=== PATIENT | male | born 1950 | race Caucasian/White ===

== ENCOUNTER 2018-11-01 13:07 | Inpatient (IN) | payer MEDICARE, OTHER ==
[~2018-11-01] VITALS: Ht 180.3 cm; Wt 67.1 kg
[2018-11-01 14:03] LABS: Basophils # (auto) 0.1 uL; Basophils % (auto) 0.9 % (0.0-2.0); Eosinophils # (auto) 0.5 uL; Eosinophils % (auto) 3.5 % (0.0-7.0); Hematocrit 46.4 % (41.0-53.0); Hemoglobin 15.8 g/dL (13.5-17.5); Lymphocytes # (auto) 3.7 uL; Lymphocytes % (auto) 27.9 % (10.0-50.0); Mean Corpuscular Hemoglobin 30.5 pg (28.0-32.0); Mean Corpuscular Hgb Conc. 34.2 g/dL (32.0-36.0); Mean Corpuscular Volume 89.3 fL (80.0-100.0); Monocytes # (auto) 1.2 uL; Monocytes % (auto) 9.1 % (0.0-12.0); Neutrophils # (auto) 7.8 uL; Neutrophils % (auto) 58.6 % (37.0-80.0); Nucleated Red Blood Cells % 0.1 %; Platelet Count (auto) 365 10^3/uL (140-450); Red Cell Distribution Width 13.9 % (11.8-14.3); White Blood Cell 13.4 10^3/uL (4.4-10.8)
[2018-11-01 14:13] LABS: Chloride 105 mmol/L (98-107); Potassium 4.1 mmol/L (3.5-5.1); Sodium 139 mmol/L (136-145)
[2018-11-01] MEDS ORDERED: LIDOCAINE 2% JELLY 11ml (GLYDO) UR ONE (14:15)
[2018-11-01 14:22] LABS: Alanine Aminotransferase 36 U/L (16-61); Alkaline Phosphatase 130 U/L (45-117); Anion Gap 8 (5-15); Aspartate Aminotransferase 21 U/L (15-37); BUN/Creatinine Ratio 14.1; Bilirubin, Total 0.3 mg/dL (0.2-1.0); Blood Urea Nitrogen 12 mg/dL (7-18); Calcium 8.8 mg/dL (8.5-10.1); Carbon Dioxide 26 mmol/L (21-32); GFR African American 115 mL/min; GFR Non-African American 95 mL/min; Glucose 100 mg/dL (74-106); Magnesium 2.3 mg/dL (1.6-2.6); Total Protein 7.7 g/dL (6.4-8.2)
[2018-11-01] MEDS ORDERED: SODIUM CHLORIDE 0.9% 1,000 ML IV SCH (14:56)
[2018-11-01] MEDS ORDERED: NITROGLYCERIN 0.4 MG SL TAB SL PRN (15:00)
[2018-11-01] MEDS ORDERED: TEMAZEPAM 15 MG CAP PO PRN (15:00)
[2018-11-01] MEDS ORDERED: MORPHINE SULFATE 4 MG/ML SYR/VIAL IV PRN (15:00)
[2018-11-01] MEDS ORDERED: ACETAMINOPHEN 500 MG TAB PO PRN (15:00)
[2018-11-01] MEDS ORDERED: LORazepam 0.5 MG TAB PO PRN (15:00)
--- NOTE | 2018-11-01 15:55 | NUR ---
Telemetry admit from ER Patient admitted to Telemetry unit. Patient oriented to primary RN, unit, room, bed, and unit policies regarding patient care and visiting hours. Patient now on continuous telemetry monitoring, tele box #7 and telemetry reading on arrival to unit is SR in the 90's. Patient weighed by bed scale and encouraged to call if they need something. All questions and concerns addressed, patient verbalized understanding.
[2018-11-01 15:58] LABS: Amylase 178 U/L (25-115); Lipase 1040 U/L (73-393)
[2018-11-01 16:00] LABS: Creatine Kinase IFCC 69 U/L (39-308)
[2018-11-01 17:01] LABS: Folate (Folic Acid) 11.71 ng/mL (5.38-24)
[2018-11-01] MEDS: FAMOTIDINE (10MG/ML) 2ML VL IV SCH (17:30)
[2018-11-01] MEDS: LACTULOSE 20Gm/30ML SOLN PO PRN (17:31)
--- NOTE | 2018-11-01 18:46 | NUR ---
MURRAY Patient states that murray catheter is hurting and he wants it taken out. "I feel alot of pain and pressure and still feel like I have to pee, I want it taken out". Murray dc'd with clean technique following deflation of balloon. Patient tolerated well. Will continue to monitor.
[2018-11-01] MEDS: MORPHINE SULFATE 4 MG/ML SYR/VIAL IV PRN (19:12)
--- NOTE | 2018-11-01 19:19 | NUR ---
FALL Patient found on floor by Helen LAWRENCE. Patient states he fell trying to get up from [facility]. Patient states he believes he hit his head and also has a reddened area on left hip. Notified distribution clerk hospitalist, Dr. Moore. New order left hip xray and head CT.
[2018-11-01 19:24] LABS: Urine Bacteria NONE SEEN /hpf (None Seen); Urine Blood TRACE /uL (Negative); Urine Mucus FEW (None Seen); Urine Specific Gravity 1.022 (1.001-1.035); Urine WBC <1 /hpf (0 - 3)
--- NOTE | 2018-11-01 19:30 | NUR ---
CLOSING NOTE Endorsed care of patient to [facility]. Patient resting in bed with eyes closed, even rise and fall of chest noted. No S/S of distress noted.
[2018-11-01 19:51] LABS: Alcohol, Urine < 3.0 mg/dL (0-5); Amphetamine Screen, Urine POSITIVE (NEGATIVE); Barbiturate Scree,Urine NEGATIVE (NEGATIVE); Benzodiazephine Screen, Urine POSITIVE (NEGATIVE); Cannabinoid Screen, Urine NEGATIVE (NEGATIVE); Cocaine Screen, Urine NEGATIVE (NEGATIVE); Opiate Scree,Urine NEGATIVE (NEGATIVE); Phencyclidine Screen, Urine NEGATIVE (NEGATIVE)
[2018-11-01] MEDS ORDERED: cefTRIAXone 1GM/50ML D5W 50 ML IV ONE (20:30)
--- NOTE | 2018-11-01 20:50 | NUR ---
Pt went to CT and back and received CT of head due to fall. Denies headache, no n/v, KEENAN. Back in room. Call light in reach, bed in low position, and bed alarm on. Pt cautioned not to get up without calling nurse/MITER GRINDER OPERATOR.
[2018-11-01 21:58] VITALS: BP 196/83
[2018-11-01] MEDS ORDERED: ATORVASTATIN 20 MG TAB PO SCH (22:00)
[2018-11-01] MEDS ORDERED: cloNIDine HCL 0.1 MG TAB PO ONE (22:30)
[2018-11-01] MEDS: metroNIDAZOLE 500MG/100ML 100 ML IV SCH (23:31)
[2018-11-02] MEDS: SODIUM CHLORIDE 0.9% 1,000 ML IV SCH ×3 (01:04→09:47)
--- NOTE | 2018-11-02 02:44 | NUR ---
Pt assisted to bedside commode. Has very poor spatial orientation. Tries to lean forward on commode, causing himself to nearly fall. Requesting urinary catheter to be reinserted. Incontinent of large amount of urine.
[2018-11-02] MEDS: FAMOTIDINE (10MG/ML) 2ML VL IV SCH ×2 (04:16→15:48)
[2018-11-02 05:00] VITALS: BP 161/106
[2018-11-02 05:26] LABS: Basophils # (auto) 0.1 uL; Basophils % (auto) 0.8 % (0.0-2.0); Eosinophils # (auto) 0.4 uL; Eosinophils % (auto) 3.5 % (0.0-7.0); Hematocrit 42.8 % (41.0-53.0); Hemoglobin 14.4 g/dL (13.5-17.5); Lymphocytes # (auto) 3.2 uL; Mean Corpuscular Hgb Conc. 33.6 g/dL (32.0-36.0); Mean Corpuscular Volume 89.2 fL (80.0-100.0); Monocytes # (auto) 0.9 uL; Monocytes % (auto) 7.6 % (0.0-12.0); Neutrophils # (auto) 6.8 uL; Neutrophils % (auto) 60.1 % (37.0-80.0); Nucleated Red Blood Cells % 0.1 %; Platelet Count (auto) 326 10^3/uL (140-450); Red Blood Cells 4.79 10^6/uL (4.5-5.90); Red Cell Distribution Width 13.6 % (11.8-14.3); White Blood Cell 11.3 10^3/uL (4.4-10.8)
[2018-11-02] MEDS: metroNIDAZOLE 500MG/100ML 100 ML IV SCH (05:28)
[2018-11-02] MEDS: cloNIDine HCL 0.1 MG TAB PO PRN ×2 (05:38→16:09)
[2018-11-02 05:44] LABS: Amylase 74 U/L (25-115); Lipase 168 U/L (73-393)
--- NOTE | 2018-11-02 06:15 | NUR ---
Asked three times to get up to BR. Assisted to bedside commode. Insists on walking to BR but informed pt that is is not safe as his spatial orientation and balance is very poor. Pt has poor safety awareness. Requested that murray be put back in if he can receive a smaller one. 14 Fr. easily placed without trauma. Pt give Klonopin 0.1 mg po for hypertension per order. Pt is asymptomatic with hypertension. Will f/u on effectiveness of prn.
--- NOTE | 2018-11-02 07:32 | NUR ---
PAGED Paged operations clerk hospitalist regarding hypertension. Patient's current BP 164/100 HR 95. Clonidine 0.1mg given @ 0538. Awaiting call back.
--- NOTE | 2018-11-02 07:38 | NUR ---
OPENING NOTE Assumed care of patient from NOC RN, Magalie. Patient awake and alert with no S/S of distress/SOB or pain. Soliman catheter intact/patent and hung below bed. Instructed on POC and to call for assist PRN, verbalized understanding. Patient's BP is elevated, 164/100, appears asymptomatic. Paged MD for additional prn medication, awaiting call back. Bed in lowest, locked position with side rails up x2. Fall precautions in place and call light within reach. Assisted patient with getting in touch with spouse. Will continue to monitor for changes Q1hr and PRN.
[2018-11-02] MEDS: LACTULOSE 20Gm/30ML SOLN PO PRN (08:36)
[2018-11-02] MEDS ORDERED: cefTRIAXone 1GM/50ML D5W 50 ML IV SCH (09:00)
--- NOTE | 2018-11-02 09:28 | NUR ---
LM FOR FAMILY Left messaged for patient's spouse per patient's request to call.
[2018-11-02] MEDS: MORPHINE SULFATE 4 MG/ML SYR/VIAL IV PRN (09:47)
[2018-11-02] MEDS ORDERED: ASPirin 81 mg TAB PO SCH (10:00)
[2018-11-02] MEDS ORDERED: ENOXAPARIN SOD 40 MG/0.4 ML SYRINGE SC SCH (10:00)
[2018-11-02] MEDS ORDERED: POLYETHYLENE GLYCOL 17 GM PWDR PO ONE (11:15)
--- NOTE | 2018-11-02 11:40 | NUR ---
FALL While walking past patient's room, a loud noise was heard. Upon entering room, the patient was found on his knees in front of the BSC. Per patient's spouse, PT helped assist patient onto BSC. Patient then proceeded to get off the commode with the help of his spouse but she unable to help hold patient up and he fell forward onto his knees. Patient denies any injury at this time. Both patient and spouse have been told that patient is not suitable for the BSC and needs to use a bedpan. The commode has been removed from room. coiled tubing supervisor, Yecenia, and MD, Dr. Lisa Worrell, are aware of fall. Fall precautions continue to be in place and call light is within reach. Will continue to monitor patient Q1hr/PRN.
[2018-11-02 12:44] LABS: Cholesterol 248 mg/dL (< 200); Triglycerides 371 mg/dL (< 150)
[2018-11-02 12:45] LABS: HDL Cholesterol 25 mg/dL (40-59); LDL Cholesterol 151 mg/dL (< 100)
[2018-11-02] MEDS ORDERED: IOHEXOL 350 MG/ML 100ML IJ ONE (14:34)
[2018-11-02] MEDS ORDERED: ATORVASTATIN 20 MG TAB PO ONE (15:00)
[2018-11-02] MEDS: DOCUSATE SOD 100 MG CAP PO SCH ×2 (15:47→22:33)
[2018-11-02] MEDS: METOPROLOL TARTRATE 25 MG TAB PO SCH ×2 (16:05→22:32)
[2018-11-02] MEDS: HYDROcodone-ACET 5/325MG TAB PO PRN (16:10)
--- NOTE | 2018-11-02 16:30 | NUR ---
AMA Patient taken off unit by spouse via wheelchair to go down and smoke. AMA form signed. No S/S of distress noted.
--- NOTE | 2018-11-02 16:48 | NUR ---
RETURN TO UNIT Patient returned to unit via wheelchair. No S/S of distress noted.
[2018-11-02 17:00] VITALS: BP 184/123
--- NOTE | 2018-11-02 17:07 | NUR ---
assessment Per consult transfer to SNF today. MD order has been sent to shayna case management rn by Divya case management rn. MD order has been sent to GONZÁLEZ, Latrell Irby, and SHAAN. Waiting on reply back now. Addendum: 11/02/18 at 1709 by Noni Mercedes Amended: Links added.
--- NOTE | 2018-11-02 19:15 | NUR ---
CLOSING NOTE Endorsed care of patient to [facility]. Patient resting in bed with eyes closed, even rise and fall of chest noted. No S/S of distress noted.
[2018-11-02] MEDS: PROMETHAZINE HCL 25 MG/ML 1ML IV PRN (20:02)
[2018-11-02 21:39] VITALS: BP 109/72
[2018-11-02] MEDS ORDERED: ATORVASTATIN 20 MG TAB PO SCH (22:00)
[2018-11-03] MEDS: FAMOTIDINE (10MG/ML) 2ML VL IV SCH ×2 (03:24→15:28)
[2018-11-03 05:00] VITALS: BP 145/75
[2018-11-03] MEDS: DOCUSATE SOD 100 MG CAP PO SCH ×3 (06:16→21:43)
[2018-11-03] MEDS: LACTULOSE 20Gm/30ML SOLN PO PRN ×2 (06:17→22:02)
--- NOTE | 2018-11-03 07:15 | NUR ---
Report given to ENID Faulkner. Pt is oriented and on Day # 3 of ETOH withdrawal. Aware of s/s of DT's. Has fine tremors in both hands. States he feels "groggy" this am but couldn't sleep until 0230 AM. Bedrails up, call light in reach. Addendum: 11/03/18 at 0801 by NICOLAS EUCEDA RN Disregard above not, wrong patient.
--- NOTE | 2018-11-03 07:15 | NUR ---
Pt has had one small stool tonight. Abdomen soft with active bowel sounds. Received Lactulose and Colace this am and last noc. Refused enema, and then changes his mind. Able to sit on bedpan. Has been bradycardic tonight, but blood pressure WNL. Continuously removes cardiac leads. Bed alarm on, and bed rails up and pt reminded not to get up without assistance. Focuses on not being here and inappropriately wants to file a police report, when said she was going home and will be back in am. Report given to ENID Jackson
[2018-11-03 08:00] VITALS: BP 183/96
--- NOTE | 2018-11-03 08:00 | NUR ---
Opening Shift Note Assumed care of the patient from the mine shifter RN. The patient is A&Ox3, no signs or symptoms of distress. The patient has episodes of forgetfulness. Will reorient as needed. The patient's bed alarm is on. Educated the patient on POC and patient verbalized understanding. The patient's call light is within reach and bed is in the lowest, locked position. Will round hourly and continue to monitor.
[2018-11-03] MEDS: cloNIDine HCL 0.1 MG TAB PO PRN ×2 (08:50→21:42)
[2018-11-03 09:00] VITALS: BP 183/96
[2018-11-03] MEDS: ASPirin 81 mg TAB PO SCH (09:58)
[2018-11-03] MEDS: METOPROLOL TARTRATE 25 MG TAB PO SCH ×2 (09:59→21:49)
--- NOTE | 2018-11-03 10:05 | NUR ---
INSURANCE: CALLED ADMITTING TO VERIFY PATIENT INSURANCE, PER COMMUNICATION ORDER FROM DR. GIFFORD OF 11/02/18 PATIENT IS NO LONGER A CHOICE HMO PATIENT. PER ADMITTING DEPARTMENT, PATIENT IS STILL CHOICE. CALLED JUNIOR PROGRAMMER PROJECT DEVELOPMENT LEADER TO OBTAIN PHONE NUMBER FOR CHOICE PROJECT DEVELOPMENT LEADER TO FURTHER INVESTIGATE, AWAITING CALL BACK AT THIS TIME.
[2018-11-03] MEDS ORDERED: POLYETHYLENE GLYCOL 17 GM PWDR PO PRN (11:15)
[2018-11-03] MEDS ORDERED: IPRATROPIUM BROM 0.5 MG/2.5ML INH SOL NEB PRN (12:00)
[2018-11-03] MEDS ORDERED: ALBUTEROL SULF 2.5 MG/0.5ML(0.5%) NEB SOLN NEB PRN (12:00)
[2018-11-03] MEDS ORDERED: TAMSULOSIN HYDROCHLORIDE 0.4 MG CAP PO ONE (12:00)
[2018-11-03 13:00] VITALS: BP 144/89
[2018-11-03] MEDS: HYDROcodone-ACET 5/325MG TAB PO PRN (15:28)
[2018-11-03 17:13] VITALS: BP 148/87
[2018-11-03] MEDS ORDERED: ALPRAZolam 0.25 MG TAB PO PRN (17:15)
[2018-11-03] MEDS: TAMSULOSIN HYDROCHLORIDE 0.4 MG CAP PO SCH (18:32)
--- NOTE | 2018-11-03 20:11 | NUR ---
RECEIVED PT FROM DAY RN POC REVIEWED
--- NOTE | 2018-11-03 21:30 | NUR ---
pt angry and confused, xanax given as ordered, call light within reach bed alarm intact
[2018-11-03] MEDS: ALPRAZolam 0.25 MG TAB PO SCH (21:34)
[2018-11-03] MEDS: AMITRIPTYLINE HCL 25 MG TAB PO SCH (21:46)
[2018-11-03] MEDS: ATORVASTATIN 20 MG TAB PO SCH (21:49)
[2018-11-03 22:00] VITALS: BP 160/89
[2018-11-03] MEDS ORDERED: ATORVASTATIN 20 MG TAB PO SCH (22:00)
[2018-11-04] VITALS (7 sets, daily range): BP systolic 147–167; BP diastolic 70–116
--- NOTE | 2018-11-04 03:31 | NUR ---
pt awoke bed alarm went off pt sitting on side of bed, reeducated pt on nurse call light and purpose of bedpan, all questions an d concerns addressed
[2018-11-04] MEDS: FAMOTIDINE (10MG/ML) 2ML VL IV SCH ×2 (03:39→19:21)
[2018-11-04] MEDS: cloNIDine HCL 0.1 MG TAB PO PRN (03:47)
[2018-11-04] MEDS: DOCUSATE SOD 100 MG CAP PO SCH ×2 (06:13→21:39)
--- NOTE | 2018-11-04 07:00 | NUR ---
Opening Shift Note Assumed care of the patient from the maintenance technician 3rd shift RN. The patient is A&Ox4, no signs or symptoms of distress. Educated the patient on POC and patient verbalized understanding. The patient's call light is within reach and bed is in the lowest, locked position. Will round hourly and continue to monitor.
[2018-11-04] MEDS: ASPirin 81 mg TAB PO SCH (09:50)
[2018-11-04] MEDS: METOPROLOL TARTRATE 25 MG TAB PO SCH (09:50)
[2018-11-04] MEDS: NICOTINE 21MG/24 HR TOPICAL PATCH TD SCH (09:51)
[2018-11-04] MEDS: ALPRAZolam 0.25 MG TAB PO SCH ×2 (09:51→21:39)
--- NOTE | 2018-11-04 10:20 | NUR ---
Patient changed. Patient had bowel movement Addendum: 11/04/18 at 1049 by DOT BOWERS RN wrong patient
--- NOTE | 2018-11-04 10:40 | NUR ---
Wound care at bedside Addendum: 11/04/18 at 1048 by DOT BOWERS RN wrong patient
[2018-11-04] MEDS: HYDROcodone-ACET 5/325MG TAB PO PRN ×2 (14:03→20:46)
[2018-11-04] MEDS: TAMSULOSIN HYDROCHLORIDE 0.4 MG CAP PO SCH (19:22)
--- NOTE | 2018-11-04 19:30 | NUR ---
RECEIVED PT FROM DAY RN POC REVIEWED
[2018-11-04] MEDS: hydrALAZINE HCL 20 MG/ML VL IV PRN (20:55)
--- NOTE | 2018-11-04 21:35 | NUR ---
PT ATTEMPTING TO GET OOB, BED ALARM INTACT CALL LIGHT WITHIN REACH, REEDUCATED PT ON POC , XANAX GIVEN ORDERED
[2018-11-04] MEDS: AMITRIPTYLINE HCL 25 MG TAB PO SCH (21:39)
[2018-11-04] MEDS: ATORVASTATIN 20 MG TAB PO SCH (22:00)
--- NOTE | 2018-11-04 22:19 | NUR ---
Respiratory note: PRN MED NEB TX NOT INDICATED AT THIS TIME. HR 101, RR 16, SPO2 99% ON RA, BS CLEAR. PT INFORMED TO HIT CALL BUTTON IF FEELING SOB OR WHEEZING.
--- NOTE | 2018-11-05 00:56 | NUR ---
PT RESTING WITH EYES CLOSED RESP EVEN AND UNLABORED, BED ALARM INTACT, CALL LIGHT WITHIN REACH
[2018-11-05] MEDS: HYDROcodone-ACET 5/325MG TAB PO PRN ×3 (02:31→20:00)
--- NOTE | 2018-11-05 03:33 | NUR ---
PT AWOKE RESTLESS THREATENING TO JUMP OOB, BED ALARM INTACT, CALL LIGHT WITHIN REACH, PT HAS PERIODS OF INCREASED ANXIETY
[2018-11-05] MEDS: FAMOTIDINE (10MG/ML) 2ML VL IV SCH ×2 (03:41→14:29)
[2018-11-05] MEDS: LACTULOSE 20Gm/30ML SOLN PO PRN (03:47)
[2018-11-05 05:00] VITALS: BP 189/105
[2018-11-05] MEDS: hydrALAZINE HCL 20 MG/ML VL IV PRN ×2 (05:30→23:36)
[2018-11-05 05:36] LABS: Basophils # (auto) 0.1 uL; Eosinophils # (auto) 0.3 uL; Eosinophils % (auto) 3.6 % (0.0-7.0); Hematocrit 44.3 % (41.0-53.0); Hemoglobin 15.1 g/dL (13.5-17.5); Lymphocytes # (auto) 2.4 uL; Mean Corpuscular Volume 88.4 fL (80.0-100.0); Monocytes # (auto) 0.6 uL; Monocytes % (auto) 7.4 % (0.0-12.0); Neutrophils # (auto) 5.2 uL; Nucleated Red Blood Cells % 0.1 %; Platelet Count (auto) 352 10^3/uL (140-450); Red Blood Cells 5.02 10^6/uL (4.5-5.90); Red Cell Distribution Width 13.6 % (11.8-14.3); White Blood Cell 8.7 10^3/uL (4.4-10.8)
[2018-11-05] MEDS: PROMETHAZINE HCL 25 MG/ML 1ML IV PRN (06:11)
[2018-11-05 06:14] LABS: Potassium 3.3 mmol/L (3.5-5.1)
--- NOTE | 2018-11-05 06:45 | NUR ---
HOSPITALIST PAGED FOR INCREASE IN PTS PAIN MED, PT C/O BACK PAIN
--- NOTE | 2018-11-05 06:46 | NUR ---
BED ALARM ON PT CONTINUE TO TRY TO GET OOB BED ALARM HOME CARE PHYSICAL THERAPIST LIGHT WITHIN REACH, PT NEEDS A SITTER CHARGE NURSE AWARE, NO SITTER AVAILABLE AT THIS TIME
--- NOTE | 2018-11-05 06:49 | NUR ---
PT CONTINUE TO REMOVE TELE MONITOR AND STAY NAKED IN BED REEDUCATED PT ON POC AND PURPOSE OF HEART MONITOR
--- NOTE | 2018-11-05 07:32 | NUR ---
PT PULLED OUT GIL CATHETER
--- NOTE | 2018-11-05 07:40 | NUR ---
OPENING SHIFT PATIENT IS AWAKE, ALERT, AND ORIENTED X4. PATIENT C/O OF ANXIETY AND BACK PAIN 06/13. WILL MEDICATE PER EMAR/ M.D. ORDERS. NO S/S OF DISTRESS OR SOB. PATIENT HAS NO GIL CATHETER AT THIS TIME AND IS REQUESTING A NEW ONE. IT WAS REPORTED PATIENT PULLED HIS LAST ONE OUT AND THERE WAS BLEEDING NOTED. PATIENT HAS BPH. EXPLAINED TO PATIENT I MUST GET AN M.D. CLEARANCE BEFORE INSERTING ANOTHER CATHETER DUE TO POSSIBILITY OF TRAUMA TO AREA. PATIENT VERBALIZED UNDERSTANDING. BED IS IN LOWEST POSITION, SIDE RAILS UP X2, AND CALL LIGHT WITHIN REACH. WILL CONTINUE TO MONITOR Q1 HOUR AND PRN.
--- NOTE | 2018-11-05 08:13 | NUR ---
REPORT GIVEN TO AM NURSE POC REVIEWED
[2018-11-05 08:42] VITALS: BP 127/75
--- NOTE | 2018-11-05 08:46 | NUR ---
hospitalist paged regarding pt pulling out murray catheter, charge notified also that pt needed a sitter for safety, night charge nurse aware no sittter available
[2018-11-05] MEDS: DOCUSATE SOD 100 MG CAP PO SCH ×2 (10:19→22:21)
[2018-11-05] MEDS: ASPirin 81 mg TAB PO SCH (10:19)
[2018-11-05] MEDS: amLODIPine BESYLATE 5 MG TAB PO SCH (10:20)
[2018-11-05] MEDS: ALPRAZolam 0.25 MG TAB PO SCH ×2 (10:20→22:21)
[2018-11-05] MEDS: NICOTINE 21MG/24 HR TOPICAL PATCH TD SCH (10:20)
--- NOTE | 2018-11-05 10:25 | NUR ---
Respiratory note: PT ASSESSED FOR PRN MED NEB TX. B/S ARE CLEAR THROUGHOUT. HR 107, 97% ON RA, RR 16. MED NEB TX IS NOT INDICATED AT THIS TIME.
--- NOTE | 2018-11-05 11:13 | NUR ---
GIL CATH CONTACTED DR. Scar MISHRA AND UPDATED M.D. ON PATIENTS SITUATION WITH GIL CATHETER. PATIENT HAS RETENTION AND STATES HE HAS TO PAY. BLADDER IS DISTENDED. PATIENT PREVIOUSLY RIPPED OUT GIL CATH EARLY THIS A.M. PER NOC R.N. ORDERS FOR A NEW GIL TO BE PLACED GIVEN VERBALLY. ORDERS READ BACK AND VERIFIED.
--- NOTE | 2018-11-05 11:15 | NUR ---
Murray catheter insertion Patient assessed and determined to be in need of murray catheter. Order obtained from MD. Patient educated on catheter and reason for insertion. All questions answered. Murray catheter 16 guage Persian inserted with clean sterile technique. MODERATE bleeding from site noted and hematuria in collection bag. 100 ml drianed immediately. DARK SIMRAN COLOR observed with small red clots in bag. Despite bleeding, patient tolerated well only c/o of mild discomfort.
--- NOTE | 2018-11-05 11:40 | NUR ---
Nutrition Assessment Notes please see attached link for complete assessment Est. Needs IBW [id number] kcal (25-30 kcal/kgBW), 78-93 gms pro (1.0-1.2 gms/kgBW). Will continue to monitor pertinent labs and reassess nutrient needs prn Addendum: 11/05/18 at [address] Amended: Links added.
--- NOTE | 2018-11-05 12:46 | NUR ---
UPSET PATIENT TRIED PULLING OUT GIL CATH. AGAIN. CAUSING MODERATE AMOUNT OF BLEEDING. SPOKE TO SPOOL SORTER ABOUT SWITCHING PATIENT TO A ROOM WITH A SITTER AT BEDSIDE. DISCUSSED POC WITH . VERBALIZED UNDERSTANDING.
[2018-11-05 13:00] VITALS: BP 139/87
--- NOTE | 2018-11-05 13:08 | NUR ---
HOT AND COLD PACKS PROVIDED TO PATIENT PATIENTS STATES, " I WILL KEEP RIPPING THIS CATHETER OUT OF ME IF MY BACK HURTS AND YOU DON'T FIX IT. " PATIENT REQUESTS, "SHOTS OF DRUGS THAT WILL FIX ME." EDUCATED PATIENT ON POLICY AND PROCEDURE. DISCUSSED DRUG REHABILITATION PROGRAMS. EXPLAINED THERAPEUTIC INTERVENTIONS THAT ARE NOT PHARMACEUTICAL FOR BACK PAIN. PATIENT IS NON COMPLIANT. IS UPSET AT BEDSIDE.
--- NOTE | 2018-11-05 13:11 | NUR ---
JORGE A MISHRA M.D. CAME TO BEDSIDE TO SPEAK TO PATIENT
--- NOTE | 2018-11-05 14:20 | NUR ---
PATIENT TRANSFERRED TO SITTER ROOM PATIENT TRANSFERRED TO ROOM WITH SITTER PATIENT IS NOW CALM RESTING IN BED NO S/S OF DISTRESS, SOB, OR PAIN.\ WILL CONTINUE TO MONITOR PATIENT Q1 HOUR AND PRN
--- NOTE | 2018-11-05 14:42 | NUR ---
re-assessment Per Kaushik at [facility] she has accepted patient to room [address] Scar Ansari is the accepting MDRonnie Astudillo upper caser is getting auth for SNF and Transport. Addendum: 11/05/18 at 1445 by Noni CHOE Amended: Links added.
--- NOTE | 2018-11-05 16:33 | NUR ---
AUTH FOR [facility] FROM CHOICE [id number] AUTH FOR [facility] [id number]
[2018-11-05 17:00] VITALS: BP 143/97
[2018-11-05] MEDS ORDERED: diphenhdrAMINE HCL 50 MG/1 ML VL IV ONE (17:00)
[2018-11-05] MEDS: TAMSULOSIN HYDROCHLORIDE 0.4 MG CAP PO SCH (18:29)
--- NOTE | 2018-11-05 18:32 | NUR ---
END OF SHIFT PATIENT IS RESTING IN BED. NO S/S OF DISTRESS, SOB, OR PAIN. SITTER IS AT BEDSIDE. RESPIRATIONS EVEN AND UNLABORED. WILL ENDORSE CARE TO MANAGER PRODUCT R/N AT 1900
--- NOTE | 2018-11-05 20:00 | NUR ---
RECEIVED PATIENT FROM DAY SHIFT RN. PATIENT RESTING IN BED. NO S/S OF DISTRESS NOTED. C/O PAIN @ 06/13. MEDICATED PATIENT ORDERED. RASH NOTED ON PATIENT'S CHEST AND RAC. DAY SHIFT ALREADY MEDICATED PATIENT ORDERED. GIL CATH IN PLACE DRAINING GRAVITY. POC INSTRUCTED AND ENCOURAGED PATIENT TO CALL FOR TISSUE INSERTER IF NEEDED. BED IN LOWEST POSITION WITH SIDE RAILS UP X 2. CALL ROBINS WITHIN REACH. ALARM ON. SITTER AT BEDSIDE FOR SAFETY. CONTINUE TO MONITOR FOR CHANGES Q1H AND PRN.
--- NOTE | 2018-11-05 20:47 | NUR ---
Respiratory note: PT ASSESSED FOR PRN MED NEB TX. HR 99, RR 16, SPO2 95% ON 2L NC, BS CLEAR T/O. NO SIGNS OF ANY RESPIRATORY DISTRESS NOTED. ADVISED PT TO PLEASE CALL IF NEEDED.
[2018-11-05 22:00] VITALS: BP 182/93
[2018-11-05] MEDS: ATORVASTATIN 20 MG TAB PO SCH (22:21)
[2018-11-05] MEDS: AMITRIPTYLINE HCL 25 MG TAB PO SCH (22:21)
--- NOTE | 2018-11-05 22:30 | NUR ---
ORAL MEDICATION GIVEN ORDERED. PATIENT SWALLOWED WELL. NO S/S OF ASPIRATION NOTED. CONTINUE TO MONITOR.
--- NOTE | 2018-11-05 23:36 | NUR ---
REASSESSED BP STILL HIGH 182/93 AFTER MEDICATED PATIENT FOR ANXIETY EARLIER, MEDICATED PATIENT FOR BP ORDERED. CONTINUE TO MONITOR.
--- NOTE | 2018-11-06 00:30 | NUR ---
REASSESSED BP 121/73. HR 105. CONTINUE TO MONITOR.
--- NOTE | 2018-11-06 01:49 | NUR ---
RT PAGED PATIENT C/O NOT BREATHING GOOD EVEN WITH 3L/NC, O2 SAT 95%. RT PAGED TO COME AND CHECK. CONTINUE CARE.
[2018-11-06] MEDS: HYDROcodone-ACET 5/325MG TAB PO PRN ×2 (02:30→08:36)
[2018-11-06] MEDS: FAMOTIDINE (10MG/ML) 2ML VL IV SCH (02:30)
--- NOTE | 2018-11-06 02:43 | NUR ---
PATIENT C/O PAIN @ 06/13. MEDICATED PATIENT ORDERED. CONTINUE TO MONITOR.
--- NOTE | 2018-11-06 03:21 | NUR ---
DAYANARA CALLED FOR PATIENT'S HR UP TO 140S, WENT TO CHECK PATIENT. PATIENT IS SLEEPING. NO S/S OF DISTRESS NOTED. VITALS STABLE. AND HR DOWN TO 110 BY ITSELF. WILL PASS IT TO DAY SHIFT RN TO DAY MD TO FOLLOW UP. CONTINUE TO MONITOR.
[2018-11-06 05:00] VITALS: BP 142/79
[2018-11-06 08:00] VITALS: BP 182/93
--- NOTE | 2018-11-06 08:00 | NUR ---
OPENING NOTE ASSUMED CARE OF PATIENT AWAKE, ALERT AND ORIENTED. NO S/S OF DISTRESS NOTED. PT HAS A COMPLAINT OF 10/10 PAIN TO HIS BACK. WILL MEDICATE PER MD ORDER AND NOV. PT UDPATED ON POC FOR THE DAY AND ALL QUESTIONS ANSWERED. BED IS IN LOWEST, LOCKED POSITION, CALL LIGHT WITHIN REACH, SIDE RAILS UP X2, AND BED ALARM ON. SITTER AT BEDSIDE FOR SAFETY. WILL CONTINUE TO MONITOR Q1H AND PRN.
[2018-11-06] MEDS: LACTULOSE 20Gm/30ML SOLN PO PRN (09:30)
[2018-11-06] MEDS: amLODIPine BESYLATE 5 MG TAB PO SCH (09:30)
[2018-11-06] MEDS: ASPirin 81 mg TAB PO SCH (09:31)
[2018-11-06] MEDS: DOCUSATE SOD 100 MG CAP PO SCH (09:31)
[2018-11-06] MEDS: ALPRAZolam 0.25 MG TAB PO SCH (09:31)
[2018-11-06] MEDS: NICOTINE 21MG/24 HR TOPICAL PATCH TD SCH (10:00)
--- NOTE | 2018-11-06 10:02 | NUR ---
assessment Patient is a 67 old male who is alert and oriented. Prior to admission patient lived home with his and function with assistance. Patient informed me he has no DME and no PCP. Noni Brand will see patient for PCP. Patient has a consult for SNF placement. Patient and Baudilio agree to rehab at [facility]. Patient has been accepted to room 240 bed 2 per Kaushik at [facility]. Scar Ansari is the accepting MD. Patient will be transported by [facility] at 130pm today post discharge. Patient verbalized understanding and agreed to discharge plan to SNF. Addendum: 11/06/18 at 1707 by Noni CHOE Amended: Links added.
--- NOTE | 2018-11-06 10:26 | NUR ---
AT BEDSIDE DR. MISHRA AT BEDSIDE DISCUSSING POC AND DC PLANS WITH PT AND PATIENTS , MARKUS. PT TO BE DC'D TO SNF TODAY. UROLOGY CONSULT TO BE CANCELLED. PT TO BE TRANSFERRED TO [facility] WITH GIL CATHETER. Addendum: 11/06/18 at 1140 by Larisa Arias RN RN MD ASSESSED RADIAL PULSE R/T RECENT TACHYCARDIA, PROVIDED MD WITH MOST RECENT AM HR/VITALS. MD AWARE. NO NEW ORDERS RECEIVED.
[2018-11-06 11:31] VITALS: BP 130/85
[2018-11-06] MEDS ORDERED: InsuLIN REG 1unit/0.01ml Soln (100units/ml) ONE (11:40)
--- NOTE | 2018-11-06 12:57 | NUR ---
TRANSPORT PROVIDED [facility] WITH AUTHORIZATION #. ETA OF TRANSPORT 30 MINUTES.
--- NOTE | 2018-11-06 13:13 | NUR ---
REPORT REPORT GIVEN TO CORNELIUS, ACCEPTING NURSE AT [facility]. ALL QUESTIONS ANSWERED. NUMBER PROVIDED FOR CALL BACK.
[2018-11-06] MEDS ORDERED: GOLYTELY 4L KIT PO ONE (13:15)
--- NOTE | 2018-11-06 13:30 | NUR ---
TRANSPORT RECEIVED PHONE CALL FORM [facility] REGARDING CLARIFICATION OF INSURANCE. SCAN INSURANCE POLICY NUMBER PROVIDED.
--- NOTE | 2018-11-06 13:59 | NUR ---
Discharge instructions given as ordered. Encourage to follow up with PMD as instructed. All questions and concerns addressed. Patient verbalized understanding. Medication reconciliation form completed and copy given to patient. IV removed with catheter intact, pressure dressing applied, murray catheter continued per MD order. Telemetry unit returned to ICU. Patient taken off unit via gurney with all personal belongings, accompanied by [facility] staff and family member. No distress noted at time of departure.
== END 2018-11-06 14:00 | DRG 64 ==
LOC: ER 13:12 → TELE-WESTW 14:59
PROVIDERS: ADMIT Internal Medicine; ATTEND Family Medicine
DX: I63.81 Other cerebral infarction due to occlusion or stenosis of small artery (principal); K85.90 Acute pancreatitis without necrosis or infection, unspecified; I69.354 Hemiplegia and hemiparesis following cerebral infarction affecting left non-dominant side; R65.10 Systemic inflammatory response syndrome (SIRS) of non-infectious origin without acute organ dysfunction; I63.9 Cerebral infarction, unspecified; I10 Essential (primary) hypertension; E78.5 Hyperlipidemia, unspecified; R73.03 Prediabetes; G89.29 Other chronic pain; I25.10 Atherosclerotic heart disease of native coronary artery without angina pectoris; K59.00 Constipation, unspecified; R29.6 Repeated falls; R29.708 NIHSS score 8; M54.9 Dorsalgia, unspecified; J44.9 Chronic obstructive pulmonary disease, unspecified; N40.0 Benign prostatic hyperplasia without lower urinary tract symptoms; Z91.19 Patient's noncompliance with other medical treatment and regimen; Z79.82 Long term (current) use of aspirin; Z86.61 Personal history of infections of the central nervous system; Z79.899 Other long term (current) drug therapy
CPT/HCPCS: 36415; 51702; 70450; 70496; 70498; 70551; 71045; 73700; 74018; 74176; 80048; 80053; 80061; 80307; 81001; 82150; 82550; 82607; 82746; 83036; 83690; 83735; 84443; 84478; 84484; 85025; 85652; 87086; 93005; 93306; 93886; 94761; 97163; G0378; J0696; J1815; J3490